=== PATIENT | female | born 1945 | race Caucasian/White ===

== ENCOUNTER 2016-09-09 10:11 | Emergency (ER) | payer OTHER, BC ==
[2016-09-09 10:27] VITALS: BP 128/83; PULSE 59; TEMP 97.7; BMI 23.4
[2016-09-09] MEDS ORDERED: IBUPROFEN 600 MG TABLET (FP) PO ONE (11:18)
--- NOTE | 2016-09-09 11:25 | PDOC ---
History of Present Illness - General Chief Complaint: Injury Stated Complaint: FALL Time Seen by Provider: 09/09/16 11:09 History Source: Patient Exam Limitations: No Limitations - History of Present Illness Initial Comments: 09/09/16 11:20 71 yr female tripped on the floor in the hospital and fell injured right knee, right elbow, left upper lip. No LOC no head trauma or vomiting or dizzyness. Past History - Past Medical History Allergies/Adverse Reactions: Allergies Allergy/AdvReac Type Severity Reaction Status Date / Time No Known Allergies Allergy Verified 03/16/14 17:57 Home Medications: Ambulatory Orders Bupropion HCl [Wellbutrin -] 75 mg PO HS 03/16/14 Escitalopram Oxalate [Lexapro -] 10 mg PO HS 03/16/14 Eszopiclone [Lunesta] 2 mg PO HS 03/16/14 Famotidine [Pepcid -] 20 mg PO BID 03/16/14 Levothyroxine [Synthroid -] 100 mcg PO DAILY 03/16/14 Lorazepam 1 mg PO HS 03/16/14 Polyethylene Glycol 3350 [Miralax 119 gm Btl -] 17 gm PO BID 03/16/14 Ascorbate Calcium [Vitamin C] 500 mg PO BID 11/23/14 Calcium Carbonate/Vitamin D3 [Caltrate-600 with Vit D Tab] 1 tab PO BID Cinnamon Bark 1 gm MC DAILY 11/23/14 Ferrous Sulfate [Slow Release Iron] 45 mg PO BID 11/23/14 Fish Oil/Borage/Flax/Om3,6,9#1 [[place] 3-6-9 1,200 mg Softgel] 1 tab PO DAILY 08/31 Ibuprofen [Motrin -] 400 mg PO TID 11/23/14 Loratadine [Claritin -] 10 mg PO HS 11/23/14 Multivit-Min/FA/Lycopen/Lutein [Centrum Silver Tablet] 1 tab PO DAILY 11/23/14 Vit C/E/Zn/Coppr/Lutein/Zeaxan [Ocuvite Lutein & Zeaxanthin Cp] 1 tab PO DAILY 11/23/14 Wheat Dextrin [Benefiber] 1 tsp PO DAILY 11/23/14 Aspirin [ASA -] 325 mg PO DAILY tablet 12/07/14 Oxycodone HCl/Acetaminophen [Percocet 5-325 mg Tablet] 1 tab PO Q6H PRN #60 tablet 12/07/14 Anemia: Yes Asthma: No Cancer: No Cardiac Disorders: No CVA: No COPD: No CHF: No Dementia: No Diabetes: No 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,) Disorders: No HTN: No Hypercholesterolemia: No Liver Disease: No Seizures: No Thyroid Disease: Yes - Surgical History Abdominal Surgery: No Appendectomy: No Cardiac Surgery: No Cholecystectomy: No Lung Surgery: No Neurologic Surgery: Yes (l4,l5 part laminectomy) Orthopedic Surgery: No - Immunization History Immunization Up to Date: Yes - Psycho/Social/Smoking Cessation Hx Anxiety: No Suicidal Ideation: No Smoking History: Never smoked Have you smoked in the past 12 months: No Information on smoking cessation initiated: No Hx Alcohol Use: No Drug/Substance Use Hx: No Substance Use Type: None Hx Substance Use Treatment: No *Physical Exam - Vital Signs Last Vital Signs Temp Pulse Resp BP Pulse Ox 97.7 F 59 L 18 128/83 96 09/09/16 10:21 09/09/16 10:21 09/09/16 10:21 09/09/16 10:21 09/09/16 10:21 - Physical Exam General Appearance: Yes: Nourished HEENT: positive: EOMI, PONCE, Normal ENT Inspection, TMs Normal, Pharynx Normal Neck: positive: Supple. negative: Tender Respiratory/Chest: positive: Lungs Clear, Normal Breath Sounds. negative: Chest Tender Cardiovascular: positive: Regular Rhythm, Regular Rate Musculoskeletal: positive: Normal Inspection Extremity: positive: Normal Capillary Refill, Normal Inspection, Normal Range of Motion, Tender (right patella, right elbow ) Integumentary: positive: Normal Color, Dry, Warm, Bruising (right elbow, right knee, left palm , left upper lip with superficial abrasion no bleeding ) Neurologic: positive: Fully Oriented, Alert, Normal Mood/Affect, Normal Response , Motor Strength 5/5 ED Treatment Course - RADIOLOGY Radiology Studies Ordered: Category Date Time Status ELBOW-RIGHT [RAD] Stat Radiology 09/09/16 11:18 Ordered KNEE 3 POS-RIGHT [RAD] Stat Radiology 09/09/16 11:18 Ordered Medical Decision Making - Medical Decision Making 09/09/16 11:22 cc: trip and fall no LOC or dizzyness *DC/Admit/Observation/Transfer Diagnosis at time of Disposition: Abrasion Contusion Qualifiers: Encounter type: initial encounter Contusion area: elbow Laterality: right Qualified Code(s): S50.01XA - Contusion of right elbow, initial encounter - Discharge Dispostion Disposition: HOME Condition at time of disposition: Good - Referrals Referrals: Isidro Perez MD [Primary Care Provider] - Graham Mcbride MD [Staff Physician] - - Patient Instructions Additional Instructions: apply ice every 2hrs for 20 minutes for the next 2 days while awake use the obey wrap to the knee while awake remove to sleep and bathe take motrin for pain as needed follow with the orthopedist if symptoms worsen or persist beyond 3-4 days
[2016-09-09] MEDS ORDERED: DIPHTH,PERTUSS(ACELL),TET 0.5 ML DISP.SYRIN IM ONE (11:52)
--- NOTE | 2016-09-09 13:38 | RAPID ---
Physical Examination Vital Signs: Vital Signs Temperature 97.7 F 09/09/16 10:21 Pulse Rate 59 L 09/09/16 10:21 Respiratory Rate 18 09/09/16 10:21 Blood Pressure 128/83 09/09/16 10:21 O2 Sat by Pulse Oximetry (%) 96 09/09/16 10:21 Constitutional: Yes: Well Nourished Eyes: Yes: WNL HENT: Yes: WNL, Other (injured L upper lip) Neck: Yes: WNL Cardiovascular: Yes: WNL Respiratory: Yes: WNL Gastrointestinal: Yes: WNL Musculoskeletal: Yes: Other (injured right knee, right elbow) Extremities: Yes: WNL, Other (injured right knee, right elbow) Edema: No Rapid Response - Rapid Response Assessment: 71 year old F tripped on floor by [facility] and fell, injuring R knee, R elbow and L upper lip. As per bystander, she fell, after she her R foot "got caught on the floor." He stated that her "legs stopped beneath her, but her torso kept traveling forward," resulting in her fall. Pt was taken to ED in wheelchair. Pt denied any LOC, head trauma, vomiting, or dizziness.
== END 2016-09-09 12:30 | disposition home or self-care (01) ==
LOC: JERFT 10:11
PROC: 3E0234Z Introduction of Serum, Toxoid and Vaccine into Muscle, Percutaneous Approach (ICD-10-PCS; principal; 2016-09-09)
DX: S80.01XA Contusion of right knee, initial encounter (principal); S50.01XA Contusion of right elbow, initial encounter; S00.511A Abrasion of lip, initial encounter; W01.0XXA Fall on same level from slipping, tripping and stumbling without subsequent striking against object, initial encounter; Y93.89 Activity, other specified; Y92.232 Corridor of hospital as the place of occurrence of the external cause; Y99.8 Other external cause status
CPT/HCPCS: 73070-TC-RT; 73562-TC-RT; 90471; 90715; 99281-25

== ENCOUNTER 2017-10-31 12:01 | Day surgery (SDC) | payer OTHER, BC ==
[2017-10-30 15:51] VITALS: BMI 23.8
[2017-10-31 14:56] VITALS: TEMP 97.9
[2017-10-31 16:07] VITALS: BP 119/62; PULSE 50
--- NOTE | 2017-11-04 11:37 | PATH ---
Surgical Pathology Report Patient Name: LILLY GANDHI [facility]. Rec. #: [id number] /Age/Gender: 1945 (Age: 72) / F Account: [id number] Location: U-ENDOSCOPY Taken: 10/31/2017 Received: 11/03/2017 Reported: 11/04/2017 Physicians: Jessica White M.D. Specimen(s) Received A: BX 2ND PORTION DUODENUM AND BULB B: BX GASTRIC FUNDUS BODY POLYP C: BX ANTRUM D: DISTAL ASCENDING COLON POLYP Clinical History Anemia Postoperative diagnosis: Gastric fundus and body polyp, diverticulosis, colon polyp Final Diagnosis A. DUODENUM, SECOND PORTION AND DUODENAL BULB, BIOPSY: DUODENAL MUCOSA WITH MILD CHRONIC DUODENITIS AND MILD NABILA'S GLAND HYPERPLASIA. B. STOMACH, FUNDUS AND BODY, POLYPS, BIOPSY: FUNDIC GLAND POLYP(S). IMMUNOHISTOCHEMICAL STAIN FOR H. PYLORI IS NEGATIVE. C. STOMACH, ANTRUM, BIOPSY: GASTRIC ANTRAL MUCOSA WITH MILD CHRONIC GASTRITIS. IMMUNOHISTOCHEMICAL STAIN FOR H. PYLORI IS NEGATIVE. D. DISTAL ASCENDING COLON, POLYP, BIOPSY: TUBULAR ADENOMA. Electronically Signed Denisa Quiros M.D. Gross Description A. Received in formalin, labeled "biopsy second portion of duodenum and bulb" are 4 nice, irregular portions of soft tissue ranging from 0.3-0.5 cm. in greatest dimension. The specimens are submitted in toto in one cassette. B. Received in formalin, labeled "biopsy gastric fundus and body polyps" are 6 nice, irregular portions of soft tissue ranging from 0.2-0.6 cm. in greatest dimension. The specimens are submitted in toto in one cassette. C. Received in formalin, labeled "biopsy antrum" are 2 nice, irregular portions of soft tissue measuring 0.4 and 0.7 cm. in greatest dimension. The specimens are submitted in toto in one cassette. D. Received in formalin, labeled "biopsy distal ascending colon polyp" are 2 nice, irregular portions of soft tissue measuring 0.2 and 0.3 cm. in greatest dimension. The specimens are submitted in toto in one cassette. DL/11/03/2017 saudi11/03/2017
== END 2017-10-31 16:07 | disposition home or self-care (01) ==
LOC: JASU-ENDO 12:01
PROVIDERS: ATTEND Internal Medicine Gastroenterology
PROC: 0DB98ZX Excision of Duodenum, Via Natural or Artificial Opening Endoscopic, Diagnostic (ICD-10-PCS; 2017-10-31)
PROC: 0DB68ZX Excision of Stomach, Via Natural or Artificial Opening Endoscopic, Diagnostic (ICD-10-PCS; 2017-10-31)
PROC: 0DBK8ZX Excision of Ascending Colon, Via Natural or Artificial Opening Endoscopic, Diagnostic (ICD-10-PCS; principal; 2017-10-31 12:30)
DX: D64.9 Anemia, unspecified (principal); K57.30 Diverticulosis of large intestine without perforation or abscess without bleeding; K63.5 Polyp of colon; K31.7 Polyp of stomach and duodenum
CPT/HCPCS: 88305-TC; 88342-TC

== ENCOUNTER 2020-12-08 04:53 | Day surgery (SDC) | payer OTHER, BC ==
[2020-12-08 09:38] VITALS: BMI 23.3
[2020-12-08 10:52] VITALS: TEMP 97.6
[2020-12-08 11:10] VITALS: BP 123/54; PULSE 67
== END 2020-12-08 11:41 | disposition home or self-care (01) ==
LOC: JASU-ENDO 04:53
PROVIDERS: ATTEND Internal Medicine Gastroenterology
PROC: 0DBK8ZX Excision of Ascending Colon, Via Natural or Artificial Opening Endoscopic, Diagnostic (ICD-10-PCS; principal; 2020-12-08 10:00)
DX: Z12.11 Encounter for screening for malignant neoplasm of colon (principal); D12.2 Benign neoplasm of ascending colon; K57.30 Diverticulosis of large intestine without perforation or abscess without bleeding; K63.89 Other specified diseases of intestine
CPT/HCPCS: 88305-TC

== ENCOUNTER 2024-09-21 14:02 | Inpatient (IN) | payer OTHER, BC ==
[2024-09-21 14:09] VITALS: BMI 23.3
[2024-09-21 15:28] LABS: ABSOLUTE IMMATURE GRANULOCYTES 0.03 x10^3/uL (0.0-0.031); BASOPHILS # 0.06 x10^3/uL (0.01-0.08); EOSINOPHIL % 1.7 % (0.7-5.8); EOSINOPHILS # 0.13 x10^3/uL (0.04-0.36); MCHC 33.2 g/dl (32.2-35.5); MEAN CELL VOLUME 96.6 fl (79.4-94.8); MEAN PLT VOLUME 11.2 fl (9.4-12.3); MONOCYTE # 0.58 x10^3/uL (0.24-0.86); MONOCYTE % 7.8 % (4.7-12.5); RDW 14.2 % (12.4-16.6)
[2024-09-21 15:34] LABS: INR 1.06 (0.83-1.09); PROTHROMBIN TIME (PATIENT) 11.5 SEC (9.7-13.0)
[2024-09-21 15:35] LABS: CO2 28.0 mmol/L (21-32)
[2024-09-21 15:36] LABS: ACTIVATED PTT 30.3 SECONDS (25.2-36.5); GLUCOSE,RANDOM 81.0 mg/dL (74-106)
[2024-09-21 15:38] LABS: CREATININE 0.9 mg/dL (0.55-1.3); SGOT/AST 24.0 U/L (15-37); SGPT/ALT 29.0 U/L (13-61)
[2024-09-21 15:40] LABS: TOT PROT 6.5 g/dl (6.4-8.2)
[2024-09-21 15:41] LABS: ALK PHOS 71.0 U/L (45-117)
[2024-09-21] MEDS ORDERED: ACETAMINOPHEN INJECTION 100 ML ONE (16:46)
[2024-09-21] MEDS: SODIUM CHLORIDE 0.9% 500 ML INFUS.BAG IV ONE (16:54)
[2024-09-21] MEDS: ACETAMINOPHEN 1000 MG/100 ML BAG IVPB ONE (16:54)
[2024-09-21] MEDS ORDERED: TEMAZEPAM 7.5 MG PO PRN (18:56)
[2024-09-21] MEDS: ESCITALOPRAM OXALATE 10 MG TABLET PO SCH (21:24)
[2024-09-22] MEDS: LEVOTHYROXINE NA 112 MCG TABLET (FP) PO SCH (06:20)
[2024-09-22 08:54] LABS: ABSOLUTE IMMATURE GRANULOCYTES 0.01 x10^3/uL (0.0-0.031); BASOPHILS # 0.03 x10^3/uL (0.01-0.08); EOSINOPHIL % 1.8 % (0.7-5.8); EOSINOPHILS # 0.10 x10^3/uL (0.04-0.36); MCHC 32.7 g/dl (32.2-35.5); MEAN CELL VOLUME 97.1 fl (79.4-94.8); MEAN PLT VOLUME 11.3 fl (9.4-12.3); MONOCYTE # 0.45 x10^3/uL (0.24-0.86); MONOCYTE % 8.1 % (4.7-12.5); RDW 14.1 % (12.4-16.6)
[2024-09-22 09:11] LABS: INR 1.09 (0.83-1.09); PROTHROMBIN TIME (PATIENT) 12.0 SEC (9.7-13.0)
[2024-09-22] MEDS: FAMOTIDINE 20 MG TABLET PO SCH (09:12)
[2024-09-22] MEDS: SOLIFENACIN SUCCINATE 5 MG TAB PO SCH (09:12)
[2024-09-22 09:33] LABS: CO2 29.0 mmol/L (21-32); GLUCOSE,RANDOM 80.0 mg/dL (74-106)
[2024-09-22 09:36] LABS: CREATININE 0.9 mg/dL (0.55-1.3); SGOT/AST 20.0 U/L (15-37); SGPT/ALT 25.0 U/L (13-61)
[2024-09-22 09:38] LABS: TOT PROT 6.0 g/dl (6.4-8.2)
[2024-09-22 09:39] LABS: ALK PHOS 58.0 U/L (45-117)
[2024-09-22] MEDS ORDERED: MIRABEGRON 50 MG PO SCH (10:00)
[2024-09-22 11:53] VITALS: RESP 18
[2024-09-22 12:12] VITALS: BP 142/58; PULSE 54; TEMP 98
== END 2024-09-22 17:24 | disposition home or self-care (01) | DRG 392 ==
LOC: JER 14:02 → JERBED 14:14 → J6S 20:24
PROVIDERS: ADMIT Internal Medicine; ATTEND Internal Medicine
PROC: 0DB78ZX Excision of Stomach, Pylorus, Via Natural or Artificial Opening Endoscopic, Diagnostic (ICD-10-PCS; 2024-09-22)
PROC: 0DB38ZX Excision of Lower Esophagus, Via Natural or Artificial Opening Endoscopic, Diagnostic (ICD-10-PCS; 2024-09-22)
PROC: 0DB98ZX Excision of Duodenum, Via Natural or Artificial Opening Endoscopic, Diagnostic (ICD-10-PCS; principal; 2024-09-22 11:00)
DX: K22.0 Achalasia of cardia (principal); F32.A Depression, unspecified; G47.00 Insomnia, unspecified; R13.10 Dysphagia, unspecified; E03.9 Hypothyroidism, unspecified; K31.89 Other diseases of stomach and duodenum
CPT/HCPCS: 36415; 71045-TC-FY; 74220-TC-FY; 74240-TC-FY; 80053; 83735; 84100; 85025; 85610; 85730; 86850; 86900; 86901; 88305-TC; 88342-TC; 93005; 93010; 99285-25